=== PATIENT | female | born 1990 | race African-American/Black ===

== ENCOUNTER 2017-04-28 19:25 | Emergency (ER) | payer MEDICAID ==
[~2017-04-28] VITALS: Ht 170.2 cm; Wt 68.0 kg
[2017-04-28] MEDS ORDERED: HYDR-3280 PO (19:39)
[2017-04-28] MEDS ORDERED: FERR-63 PO (19:40)
[2017-04-28] MEDS ORDERED: SODIUM CHLORIDE 0.9% 1,000 ML IV ONE (19:57)
[2017-04-28] MEDS ORDERED: MORPHINE SULFATE 10 MG/ML CPJ IM ONE (20:15)
[2017-04-28 22:30] VITALS: BP 114/71
== END 2017-04-28 22:34 | disposition home or self-care (01) ==
LOC: ER 19:35
DX: M54.5 Low back pain (principal); F17.200 Nicotine dependence, unspecified, uncomplicated; F31.9 Bipolar disorder, unspecified
CPT/HCPCS: 93005; 96372; 99283; J2270; Z7610; J7030

== ENCOUNTER 2023-03-12 14:08 | Emergency (ER) | payer MEDICAID ==
[~2023-03-12] VITALS: Ht 167.6 cm; Wt 55.0 kg
[~2023-03-12 14:08] MED LIST: FERR-63 PO; HYDR-4350 PO
[2023-03-12 14:12] VITALS: BP 133/84
[2023-03-12] MEDS ORDERED: METOCLOPRAMIDE HCL 10MG TABLET PO ONE (14:30)
[2023-03-12 15:51] LABS: BASOPHILS % 0.5 % (0.0-2.0); EOSINOPHILS % 1.3 % (0.0-5.0); HEMATOCRIT. 31.7 % (36.0-48.0); HEMOGLOBIN. 10.3 g/dL (12.0-16.0); LYMPHOCYTES % 18.6 % (20.0-50.0); MEAN CORPUSCULAR HEMOGLOBIN 26.6 pg (28.0-32.0); MEAN CORPUSCULAR VOLUME 82.1 fL (81.0-99.0); MEAN PLATELET VOLUME 7.2 fl (7.4-10.4); MONOCYTES % 9.7 % (2.0-8.0); NEUTROPHILS % 69.9 % (40.0-76.0); PLATELET 367 x1000/uL (130-400); RED BLOOD CELL COUNT 3.86 mill/uL (4.2-5.4); RED CELL DISTRIBUTION WIDTH 16.3 % (11.6-14.6)
[2023-03-12 16:00] LABS: CHLORIDE 108 mEq/L (98-107)
[2023-03-12 16:05] LABS: HCG SCREEN NEGATIVE
[2023-03-12 16:08] LABS: ETHANOL BLOOD < 10 mg/dL
== END 2023-03-12 20:13 | disposition home or self-care (01) ==
LOC: ER 14:08
DX: R53.1 Weakness (principal); R42 Dizziness and giddiness; F31.9 Bipolar disorder, unspecified; F20.9 Schizophrenia, unspecified; F12.10 Cannabis abuse, uncomplicated
CPT/HCPCS: 36415; 80053; 80307; 80320; 80329; 84703; 85025; 99283; J8597; 80305; 81003; G0480

== ENCOUNTER 2023-03-24 12:04 | Emergency (ER) | payer MEDICAID ==
[~2023-03-24] VITALS: Ht 165.1 cm; Wt 68.0 kg
[2023-03-24 12:06] VITALS: BP 133/67
[2023-03-24] MEDS ORDERED: ONDANSETRON HCL 4MG/2ML INJ IV STA (12:10)
[2023-03-24] MEDS ORDERED: SODIUM CHLORIDE 0.9% 1,000 ML IV ONE (12:15)
[2023-03-24] MEDS ORDERED: ACETAMINOPHEN 325MG TABLET PO ONE (12:45)
== END 2023-03-24 13:15 | disposition left against medical advice (07) ==
LOC: ER 12:15
DX: R51.9 Headache, unspecified (principal); F12.10 Cannabis abuse, uncomplicated; Z53.21 Procedure and treatment not carried out due to patient leaving prior to being seen by health care provider; Z86.59 Personal history of other mental and behavioral disorders
CPT/HCPCS: 99283; J7030

== ENCOUNTER 2023-04-02 15:38 | Emergency (ER) | payer MEDICAID ==
[~2023-04-02] VITALS: Ht 165.1 cm; Wt 65.0 kg
[2023-04-02 15:50] VITALS: BP 104/63
== END 2023-04-02 18:57 | disposition home or self-care (01) ==
LOC: ER 15:38
DX: R53.1 Weakness (principal); R42 Dizziness and giddiness; F31.9 Bipolar disorder, unspecified; F20.9 Schizophrenia, unspecified; F12.10 Cannabis abuse, uncomplicated
CPT/HCPCS: 99283